=== PATIENT | female | born 1950 | race Two or more races ===

== ENCOUNTER → 2021-05-06 | Emergency (ER) | payer OTHER, BC ==
[~2021-05-06] VITALS: Ht 167.6 cm; Wt 63.5 kg
== END | disposition home or self-care (01) ==
LOC: ER 22:05
DX: S00.83XA Contusion of other part of head, initial encounter (principal); W19.XXXA Unspecified fall, initial encounter; Y93.9 Activity, unspecified; Y92.59 Other trade areas as the place of occurrence of the external cause